=== PATIENT | male | born 1940 | race Caucasian/White ===

== ENCOUNTER → 2016-07-18 | Outpatient (CLI) | payer OTHER ==
[~2016-07-18] MED LIST: ALFUZOSIN HCL10 MG PO; ASPIRIN81 M2 PO; CINNAMON PLUS1 EACH PO; GLUCOTROL PO; IMDUR-ER60 M1; LOPRESSOR PO; METFORMIN PO; MEVACOR PO; MONOPRIL40 MG PO; OSTEO BI-FLEX1 EAC1 PO; TUMERSAID TABL1 EACH PO; VERAPAMIL ER120 M1 PO; VITAMIN B122500 MCG; VITAMIN C500 MG PO; VITAMIN D-32000 UNI1 PO
[2016-07-18 14:41] LABS: HEMATOCRIT 40.8 % (38.0-50.0); HEMOGLOBIN 13.4 gm/dL (13.0-16.0); MEAN CELL VOLUME 92.3 FL (83-96); MEAN CORPUSCULAR HEMOGLOBIN 30.3 PG (28-34); MEAN CORPUSCULAR HGB CONC 32.9 g/dL (30-36); MEAN PLATELET VOLUME 7.7 FL (6.5-11.5); RED BLOOD COUNT 4.42 X10e (3.90-5.60); RED CELL DISTRIBUTION WIDTH 14.5 % (11.0-15.5); WHITE BLOOD COUNT 6.9 X10e3 (4.0-10.5)
[2016-07-18 14:46] LABS: URINE APPEARANCE CLEAR; URINE BILIRUBIN NEG (NEG); URINE BLOOD NEG (NEG); URINE COLOR YELLOW; URINE GLUCOSE NEG (NEG); URINE KETONE TRACE (NEG); URINE LEUKOCYTE ESTERASE NEG (NEG); URINE NITRATE NEG (NEG); URINE PH 5.5 (5-8); URINE PROTEIN TRACE (NEG); URINE SPECIFIC GRAVITY 1.021 (1.003-1.035); URINE UROBILINOGEN 0.2 MG/DL (NEG)
[2016-07-18 15:04] LABS: CULTURE INDICATED? NO; URINE SOURCE CLEAN CATCH
[2016-07-18 15:12] LABS: BUN/CREATININE RATIO 17.77; CALCIUM SERUM 9.3 mg/dL (8.4-10.2); CREATININE SERUM 0.9 mg/dL (0.6-1.4); GLOM FILT RATE Estimated 82.7 mL/min (>60); POTASSIUM 4.5 mmol/L (3.5-5.1)
== END | disposition home or self-care (01) ==
LOC: CAMB 13:42
PROVIDERS: Orthopaedic Surgery
DX: Z01.812 Encounter for preprocedural laboratory examination (principal); M17.11 Unilateral primary osteoarthritis, right knee
CPT/HCPCS: 36415; 80048; 81003; 85027; 87070

== ENCOUNTER 2016-08-02 11:14 | Inpatient (IN) | payer OTHER, MEDICARE ==
--- NOTE | ~2016-08-02 | CO ---
Unit #: [id number] #: [id number] Patient: FARHEEN FORTE [id number] [address] [place], [place] [address] [id number] I MR#: [id number] NAME: FARHEEN FORTE ROOM: [facility] Age: 76 Sex: M Admission Date: 08/02/2016 : 1940 Attending Physician: Abdullahi Fowler M.D. Consultation Date: 08/04/2016 CONSULTATION REPORT REASON FOR CONSULTATION Postop acute kidney injury. HISTORY OF PRESENT ILLNESS Mr. Forte is a very pleasant 76-year-old male with a longstanding history of diabetes and hypertension, who is status post right total knee replacement on 08/02/2016. We were asked to see today, because of postop increase in creatinine from 0.9 preop to 1.5 yesterday and now 1.8 today. Of note, the patient had been on an LJ inhibitor and did receive a dose Monday night and did have subsequent low blood pressures into the 90s that required IV fluid boluses. He is now off his LJ inhibitor. Nursing reports that he is pretty sensitive to pain medication. The patient is alert and doing well this afternoon. He denies any chest discomfort or shortness of breath. He does have a Dorman catheter in place with nonbloody urine. I do not see any NSAID use. He has not received any IV contrasted studies. He does not use NSAIDs at home. PAST MEDICAL HISTORY Significant for hypertension, hyperlipidemia, diabetes, BPH, obesity, and osteoarthritis. PAST SURGICAL HISTORY He has had gastric bypass, previous heart catheterization. CURRENT MEDICATIONS As follows; he is getting normal saline at 100 mL/hour, Colace 100 mg b.i.d., Xarelto 10 mg a day, Uroxatral 10 mg a day, Lipitor 10 mg at bedtime, metoprolol 25 mg b.i.d., glipizide 5 mg b.i.d., verapamil 120 mg b.i.d., Imdur 60 mg a day, vitamin D daily, glucosamine daily, vitamin C daily, sliding-scale insulin, and p.r.n. He also was getting Monopril 40 mg daily, which has been held. ALLERGIES He has no known drug allergies. FAMILY HISTORY Denies any family history of kidney disease. His mother was also diabetic. SOCIAL HISTORY He lives with his . He is a former smoker. No alcohol or drug abuse. REVIEW OF SYSTEMS A complete 12-point review of systems was completed with the above findings. In addition, he denies any headaches or dizziness. No Unit #: [id number] #: [id number] Patient: FARHEEN FORTE nosebleed, sore throat, or earache. No chest pain or palpitations. No cough or hemoptysis. No postop nausea, vomiting, or diarrhea. No hematuria. No rashes or itching. No flank pain. No fevers. No chills. No night sweats. No hot flashes. No intolerance to heat or cold. No bleeding. No postop bleeding. No recent weight changes. Unless otherwise indicated, the review of systems was negative. 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 I's and O's are positive by 2 L. GENERAL: This is a pleasant 76-year-old male, seems somewhat tired, but in no acute distress. HEENT: Head is atraumatic and normocephalic. Eyes show pink conjunctivae with no scleral icterus. No nasal drainage. No nosebleed. Oropharynx is moist. He does have a narrow posterior pharyngeal airway. NECK: Thick with no JVD. HEART: Regular rate and rhythm with distant S1 and S2. No murmur or rub appreciated. LUNGS: Clear with no wheezing or rhonchi. Breathing is nonlabored. ABDOMEN: Morbidly obese, soft, nontender. Bowel sounds are present. EXTREMITIES: He has trace right lower extremity edema. No left lower extremity edema. SKIN: Without rashes. MUSCULOSKELETAL: Right knee is bandaged. No CVA tenderness to palpation. NEUROLOGIC: Cranial nerves are grossly intact with no gross motor deficits. LYMPHATIC: There is no neck or cervical lymphadenopathy. PSYCHIATRIC: Mood and affect appear normal. DIAGNOSTIC STUDIES LABORATORY RESULTS: Chemistry today showed a sodium of 137, potassium 4, chloride 106, bicarb 24, glucose 188, BUN 32, creatinine 1.8. Mag was 1.6. Hemoglobin 10. Urinalysis today did show 1+ protein, no blood. Hemoglobin A1c was 7.3. Yesterday's creatinine was 1.5 and again preop creatinine on 07/18/2016 was 0.9 and preop urine just showed some trace protein and no blood. ASSESSMENT AND PLAN 1. Acute kidney injury. This looks to be prerenal in nature from hypotension while on an LJ inhibitor, which would inhibit renal compensatory mechanisms. Certainly, I agree with stopping his Monopril and continuing fluids for blood pressure support. We can recheck in the morning. Certainly if his kidney function is better, I think we can proceed to rehab. 2. Hypertension. I would allow his blood pressure to run a little high here postop since he does have sleep apnea and he seems to be sensitive to pain medication. His Monopril has been stopped. I will place hold parameters on his metoprolol and verapamil for any systolic blood pressure less than 120. 3. Diabetes with apparent pretty good control. 4. Benign prostatic hyperplasia. The patient does have a Dorman catheter in and is on Uroxatral. We will discontinue his Dorman in the morning and do a voiding trial before discharge. 5. Status post right knee replacement. 6. Probable obstructive sleep apnea. Unit #: [id number] #: [id number] Patient: FARHENE FORTE I would like to thank Dr. Kitchen for this consult and the opportunity to participate in evaluation and care of Mr. Forte. Dictated by... Raghav Pugh Jr., M.D. BIJAN/vandana TD: 08/05/2016 06:28 JOB #: [id number] CONSULTATION REPORT Page 1 of 1 X Raghav Pugh MD X CONSULTATION REPORT
--- NOTE | ~2016-08-02 | CO ---
Unit #: [id number] #: [id number] Patient: FARHEEN GREEN [id number] [address] [place], [place] [address] [id number] I MR#: [id number] NAME: FARHEEN GREEN ROOM: 473 Age: 76 Sex: M Admission Date: 08/02/2016 : 1940 Attending Physician: Abdullahi Fowler M.D. CONSULTATION REPORT REASON FOR CONSULTATION Tachycardia. HISTORY OF PRESENT ILLNESS This is a 76-year-old white male, who is known to Dr. Purvis, who has a history of hypertension, hyperlipidemia, and AV maximo reentry tachycardia that was diagnosed in 2002. The patient was admitted for right total knee replacement. He was cleared by Dr. Purvis for surgery. He had a heart catheterization in 2015, where he was found to have normal coronaries. Prior echocardiogram in 2002 showed normal left ventricular systolic function, where his ejection fraction was 60%. He has been maintained on beta-brooke and calcium-channel brooke for rhythm control. He denies history of ablation. During the course of his stay, the patient was mildly hypotensive, where his blood pressure was in the 90s systolic. There were doses of his calcium-channel brooke and beta-brooke that were withheld. He developed paroxysmal supraventricular tachycardia, where his heart rate was up to 150 beats per minute this morning. The rhythm self-terminated. The patient was unaware of palpitations. He denies chest pain, palpitations, or dizziness. He reports no dyspnea. Electrolytes are within normal limits. PAST MEDICAL HISTORY 1. Cardiac catheterization, 03/11/2016, at [facility] per Dr. Purvis, which revealed left main LAD and right coronary arteries normal. Circumflex artery, early obtuse marginal branch, was small with distal obtuse marginal branch large caliber. 2. 2D echocardiogram in 2002 with an ejection fraction of 60% per Dr. Purvis's office note. 3. Stress test at [facility]. Small to moderate amount of anterior apical wall ischemia versus infarct. This is according to office note from Dr. Purvis. 4. Hypertension. 5. Hyperlipidemia. 6. AV maximo reentry tachycardia in 2002. 7. Obesity. 8. Diabetes mellitus, type 2. 9. BPH. 10. Nonsmoker. PAST SURGICAL HISTORY 1. Right total knee replacement. 2. Gastric bypass. Unit #: [id number] #: [id number] Patient: FARHEEN GREEN SOCIAL HISTORY The patient resides in [place], [place]. He is . He lives a sedentary lifestyle. He has never smoked. No illicit drug or alcohol use. FAMILY HISTORY Negative for coronary artery disease in immediate family member. ALLERGIES No known drug allergies. HOME MEDICATIONS Alfuzosin 10 mg daily, lovastatin 40 mg q.h.s., metoprolol tartrate 25 mg b.i.d., fosinopril sodium 40 mg q.h.s., glipizide 5 mg b.i.d., verapamil 120 mg b.i.d., Glucophage 1000 mg b.i.d., Imdur 60 mg daily, aspirin 81 mg daily, vitamin D3 2000 units daily, Osteo Bi-Flex one tablet daily, vitamin C 500 mg daily, cinnamon plus chromium two tablets daily, Tumersaid tablet one tablet daily. REVIEW OF SYSTEMS CONSTITUTIONAL: Negative for fever or chills. Reports weakness secondary to surgery. HEENT: No headache or hearing or visual changes. No dizziness. CARDIOVASCULAR: Has no symptoms of angina. Unaware of palpitations. No paroxysmal nocturnal dyspnea or orthopnea. No syncope or near syncope. RESPIRATORY: Negative for dyspnea, cough, or hemoptysis. GASTROINTESTINAL: No abdominal pain, nausea, or vomiting. No constipation or melena. EXTREMITIES: Negative for lower extremity edema. PHYSICAL EXAMINATION VITAL SIGNS: Blood pressure 149/58, heart rate 92, temperature 98.2, BMI of 49. GENERAL: This is a very pleasant, obese 76-year-old white male, who is in no acute respiratory distress. NEUROLOGIC: He is awake, alert, and oriented. There are no focal weaknesses. NECK: Trachea is midline. No thyromegaly or lymphadenopathy. No jugular venous distention. HEART: S1 and S2. Heart sounds are normal. No murmurs, rubs, or clicks. Regular rate and rhythm. LUNGS: Diminished without rales, rhonchi, or wheezing. ABDOMEN: Soft and obese with bowel sounds are present. EXTREMITIES: Without leg edema. SKIN: Warm and dry. DIAGNOSTIC STUDIES LABORATORY RESULTS: Glucose 176, BUN 23, creatinine 1.2, sodium 139, potassium 4.0, magnesium 1.9. TSH 0.10. White count 10.9, hemoglobin 10.0, hematocrit 30.1, platelet count 212. CARDIOVASCULAR STUDIES: Rhythm strip shows paroxysmal supraventricular tachycardia with a rate of 150 beats per minute, converted to normal sinus rhythm. IMPRESSION 1. Osteoarthritis, status post right total knee replacement. 2. Acute kidney injury. 3. Hypertension by history. Unit #: [id number] #: [id number] Patient: FARHEEN GREEN 4. Hyperlipidemia. 5. Diabetes mellitus, type 2. 6. 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 7. Normal coronaries per cardiac catheterization in 02/2016. 8. Preserved left ventricular systolic function with ejection fraction of 60%. PLAN 1. Cardiology was consulted for tachycardia. The patient had a long run of supraventricular tachycardia at a rate of 150 beats per minute. Because of hypotension, the patient missed doses of calcium-channel brooke and beta-brooke. We will restart Lopressor and verapamil. 2. Blood pressure is currently stable. I will discontinue Imdur to prevent hypotension. 3. Continue aspirin. 4. TSH is low. We will check free T3 and free T4. 5. On IV fluids for renal insufficiency, which has been corrected. 6. Follow up with Dr. Purvis upon discharge. 7. We will follow the patient with you. Thank you for allowing us to assist in this patient's care. Dictated by... Pam Bocanegra/vandana TD: 08/06/2016 03:54 JOB #: [id number] CONSULTATION REPORT Page 1 of 1 X Rodrick Harrison APRN X CONSULTATION REPORT
--- NOTE | ~2016-08-02 | BMI ---
[facility] Nutrition Therapy DATE: 08/03/16 Patient: FARHEEN GREEN Physician: KARINA Address: [address] Room/Bed: [address] [place] [address], Zip: [place] [address] Admit Date: 08/02/16 Date of : [birth year] Height: 6 0 Weight: 362 164.6 HIGH BMI NOTE: DX: 76 yo male admitted for R knee DJD ANTHROPOMETRICS: Ht: 6'0" Wt: 164.5 kg (362#) BMI: 49.2 DIET: Consistent carb INTERVENTION: 1. Consistent carb RECOMMENDATIONS: 1. Continue consistent carb diet to promote gradual weight loss towards healthy BMI. RD will f/u per protocol. Respectfully, Sapphire Das, Setter [employer] Equipment ONEAL AYALA MS, RD, LD [employer] [facility] cc: client file
--- NOTE | ~2016-08-02 | CR170 ---
[facility] A Service of [facility] RADIOLOGY TEXT RESULTS PATIENT: FARHEEN GREEN LOCATION: [facility] 455 : 40 UNIT #: [id number] AGE: [address]: Elsy Fowler MD SEX: M ORDER DR: [id number] [facility]. [place], [place] [address] [id number] I MR#: [id number] Acc #: [id number] NAME: FARHEEN GREEN : 1940 SEX: M STUDY DATE/TIME: 08/03/2016 10:07 UNIT: [facility] ROOM: [facility] STUDY DESCRIPTION: CR Knee 2 Views Rt Attending Physician: Abdullahi Fowler M.D. Ordering Physician: Abdullahi Fowler M.D. Primary Care Physician: Generic Doctor Not In System MEDICAL IMAGING REPORT This report is preliminary unless electronic signature is present EXAM 2 views right knee. DATE OF EXAMINATION 08/03/2016 10:07 HISTORY Status post right knee replacement today. COMPARISON 2 views right knee 06/08/2016 FINDINGS Total right knee replacement changes are present. The prosthesis appears appropriately seated, no periprosthetic fracture is seen. Surgical drain is in place anteriorly. Multiple midline anterior skin irma are present. Expected degree of postoperative subcutaneous air. Knee joint appears appropriately aligned. IMPRESSION Satisfactory postoperative appearance status post right knee replacement. Dictated by... Angelique Hong M.D. THIS IS AN ELECTRONICALLY VERIFIED REPORT Angelique Hong M.D. at 08/04/2016 7:04 AM Vikki TD: 08/03/2016 15:33 JOB #: [id number] MEDICAL IMAGING REPORT [facility] A Service [facility] RADIOLOGY TEXT RESULTS PATIENT: FARHEEN GREEN LOCATION: [facility] 455 : 40 UNIT #: [id number] AGE: [address]: Elsy Fowler MD SEX: M ORDER DR: Page 1 of 1 COPY
--- NOTE | ~2016-08-02 | DS ---
Unit #: [id number] #: [id number] Patient: FARHEEN GREEN [id number] [address] [place], [place] [address] [id number] I MR#: [id number] NAME: FARHEEN GREEN ROOM: [facility] Age: 76 Sex: M Admission Date: 08/02/2016 : 1940 Discharge Date: 08/05/2016 Attending Physician: Abdullahi Fowler M.D. Primary Care Physician: Generic Doctor Not In System DISCHARGE SUMMARY CHIEF COMPLAINT Right knee pain. HISTORY OF PRESENT ILLNESS This patient is a 76-year-old male with a long history of right knee pain unresponsive to physical therapy, bracing, anti-inflammatory medications, injections and activity modification. The patient is admitted for elective total knee arthroplasty. HOSPITAL COURSE The patient was taken to the operating room on the date of admission where he underwent successful right total knee arthroplasty utilizing the Ro Triathlon artificial knee. He had a posterior constrained femoral component. There were no operative complications. He had a stable postoperative course and proceeded with physical therapy on a daily basis. The patient's wound was healing well on the second postoperatively day. His calf is nontender. The right leg is neurovascularly intact. Hematocrit was 30.1 on the second postoperative day. He remained afebrile with stable vital signs. He was seen by internal medicine service, who managed his diabetes postoperatively with sliding scale insulin. Because the patient is morbidly obese and his is quite small and has difficulty helping him at home, he elects to proceed to rehab placement for further physical therapy and occupational therapy. The patient was, therefore, discharged in stable condition on the third postoperative day to rehab. FINAL DIAGNOSIS Right knee arthritis. OPERATION PERFORMED Right total knee arthroplasty on 08/02/2016. DISPOSITION/RECOMMENDATIONS 1. The patient is discharged to rehab for further occupational and physical therapy. He may weightbear as tolerated. He can move the knee as much as is comfortable. I would recommend continued passive range of motion, continued physical therapy on a twice a day basis. 2. Daily dressing change using a dry (1) dressing. 3. Discharge medications are as follows: Xarelto 10 mg p.o. daily for 2 weeks, Glucophage 1,000 mg p.o. b.i.d., Lopressor 25 mg p.o. b.i.d., verapamil 120 mg p.o. b.i.d., lovastatin 40 mg p.o. q.h.s., Monopril 40 mg p.o. q.h.s., alfuzosin 10 mg p.o. daily, Percocet 7.5/325 mg 1 or 2 p.o. q.4-6 hours p.r.n. pain, Glucotrol 5 mg p.o. b.i.d. a.c., Imdur 60 mg p.o. daily, vitamin B12 daily, vitamin C 500 mg p.o. Unit #: [id number] #: [id number] Patient: FARHEEN GREEN daily, vitamin D3 - 2,000 units p.o. daily. 4. Follow up in my office in 10-14 days for staple removal. Dictated by.Viviana Agarwal/williams TD: 08/04/2016 08:53 JOB #: [id number] DISCHARGE SUMMARY Page 1 of 1 X Elsy Fowler MD X DISCHARGE SUMMARY
--- NOTE | ~2016-08-02 | OR ---
Unit #: [id number] #: [id number] Patient: FARHEEN GREEN [id number] [address] [place], [place] [address] [id number] MR#: [id number] NAME: FARHEEN GREEN ROOM: [facility] Date of Procedure: 08/02/2016 Admission Date: 08/02/2016 Surgeon: Abdullahi Fowler M.D. : 1940 Attending Physician: Abdullahi Fowler M.D. Primary Care Physician: Generic Doctor Not In System PROCEDURE OPERATIVE NOTE PREOPERATIVE DIAGNOSIS Right knee degenerative arthritis. POSTOPERATIVE DIAGNOSIS Right knee degenerative arthritis. PROCEDURE PERFORMED Right total knee arthroplasty (43993). SASH ASSEMBLER Viviana Devries M.D. ANESTHESIA Femoral block and general. IMPLANT Ro Triathlon posterior stabilized femoral size 8, tibial size 8, 9 mm thick poly and 40 mm diameter asymmetric patella. The femur was press fit and the tibia and patellar components were cemented. INDICATION FOR SURGERY The patient is a 75-year-old male who presented with right knee medial compartment arthritis unresponsive to conservative care. He has pain with activities of daily living. He has failed all conservative modalities. He is, therefore, to undergo knee replacement. PROCEDURE The patient underwent femoral adductor block in the anesthesia holding area to the right lower extremity. He was then taken to the operating room and placed in the supine position and general anesthetic was induced. The right leg was identified as the correct operative location during the time-out procedure. The IV antibiotic protocol was followed. The right leg was then prepped and draped in the usual sterile fashion. The right leg was exsanguinated and the thigh tourniquet inflated to 300 mmHg. An anterior longitudinal incision was made over the knee measuring 15 cm. The subcutaneous tissue was carefully divided. The knee joint was opened through a medial parapatellar incision. The anterior fat pad was excised. The patella was dislocated laterally and the knee was flexed. The Ro Triathlon System was used for knee replacement. A starting drill hole was placed in the anterior medullary canal of the femur. The distal femoral cutting guide was then pinned into place. A 5 Unit #: [id number] #: [id number] Patient: FARHEEN GREEN degree valgus 8 mm thick cut was then made. The femur was sized at a #8. The #8 cutting block was applied. The anterior-posterior and chamfer cuts were made. The notch cutting guide was then placed and the notch cut was made. The trial #8 femoral component fit appropriately. The menisci were then excised. The posterior cruciate retractor was placed. A drill hole was then made in the intramedullary canal of the tibia and between the intracondylar spine. The guide colette was placed and the tibial cut was adjusted so that 2 mm of bone would be taken off the medial side since it was the most worn side. The tibial cut was made. The bone was removed and it was determined that not enough bone was removed. Therefore, the tibial cut was dropped another 2 mm and another 2 mm of bone was taken from the tibia. The #8 tibial trial fit appropriately. It was positioned rotationally appropriately and the pinned into place. The keel punch was then utilized. A trial reduction with the femur and tibial trial components showed excellent range of motion and stability in both varus and valgus stress at all degrees of flexion. All trial components were removed. The patella was then measured and a freehand patellar cut was made, removing 12 mm thickness of patella. An asymmetric 40 patella trial was placed and the 3 drill holes were placed in the patella. All bony surfaces were then pulse lavaged. The #8 tibial component was then impacted into place. The press fit #8 femur was impacted into place. The size A 40 patella was cemented into place. Then finally the 9 mm thick polyethylene PF insert was placed. The knee was stable. Full extension was achieved. Medial and lateral stability was excellent. Patellar tracking was excellent. The tourniquet was released. The patellar tourniquet time was 1 hour 40 minutes. The flank capsule and subcutaneous and muscular and tendinous tissues were then infiltrated with a cocktail of clonidine, ropinirole, Toradol and epinephrine. After release of the tourniquet there was a little postoperative bleeding and medium Hemovac drain was placed. A 3 minute dilute Betadine wash was applied and then lavaged with saline. The muscle layer was then closed with interrupted 0 Vicryl mtzwdj-dh-ikloy suture. Subcutaneous tissue was closed with 2-0 Vicryl. Skin was closed with skin irma. Xeroform gauze, dressing, sponges, Webril, Genaro wrap were applied and a knee immobilizer was placed. The patient was then transported to the recovery room in stable condition. ESTIMATED BLOOD LOSS Less than 100 mL. COMPLICATIONS None. SPECIMENS None. Dictated by..Farrah Fowler M.D. RTMady/dory TD: 08/09/2016 11:23 Unit #: [id number] #: [id number] Patient: FARHEEN GREEN JOB #: [id number] CC: Abdullahi Fowler M.D. PROCEDURE OPERATIVE NOTE Page 1 of 1 X Elsy Fowler MD X PROCEDURE OPERATIVE NOTE
--- NOTE | ~2016-08-02 | DS ---
Unit #: [id number] #: [id number] Patient: FARHEEN FORTE [id number] [address] [place], [place] [address] [id number] I MR#: [id number] NAME: FARHEEN FORTE ROOM: [facility] Age: 76 Sex: M Admission Date: 08/02/2016 : 1940 Discharge Date: 08/06/2016 Attending Physician: Abdullahi Fowler M.D. Primary Care Physician: [place]asta Doctor Not In System DISCHARGE SUMMARY ADDENDUM Mr. Forte remained in house following his planned discharge as on the day of discharge he was noted to have an elevated creatinine of 1.8. His preop creatinine was 0.9. Now on the day of discharge, his acute kidney injury has resolved and his creatinine is back down to 0.9. Additionally, he had an episode of SVT. Cardiology was consulted. He has been seen and evaluated and no further recommendations for workup have been made. He has been cleared for discharge to rehab. We are waiting final disposition on Imdur as this was discontinued during this hospitalization, but it is not clear if this is to be discontinued upon discharge as well. An updated medical reconciliation follows. DISCHARGE MEDICATIONS 1. Glucophage 1 g p.o. b.i.d. 2. Xarelto 10 mg p.o. daily x2 weeks post discharge. 3. Lopressor 25 mg p.o. b.i.d. 4. Verapamil 120 mg p.o. b.i.d. 5. Lovastatin 40 mg p.o. q.h.s. 6. Fosinopril 40 mg p.o. q.h.s. 7. Alfuzosin 10 mg p.o. daily. 8. Glucotrol 5 mg p.o. b.i.d. before meals. 9. Vitamin B12 tablet daily. 10. Vitamin C 500 mg p.o. daily. 11. Vitamin D3 2000 units p.o. daily. 12. Percocet 5/325 one to two tabs p.o. q.4-6 hours p.r.n. pain. 13. Pending reconciliation of Imdur 60 mg daily. Awaiting final cardiology recommendation. Please see the completed discharge medication reconciliation document from the hospital. FOLLOWUP As scheduled with Dr. Fowler. Dictated by... Abran Guzman M.D. SRIKANTH/kniza TD: 08/06/2016 10:29 JOB #: [id number] Unit #: [id number] #: [id number] Patient: FARHEEN FORTE DISCHARGE SUMMARY Page 1 of 1 X Abran Guzman MD X DISCHARGE SUMMARY
--- NOTE | ~2016-08-02 | EKG ---
PATIENT: FARHEEN GREEN UNIT #: [id number] Ventricular Rate: 95 BPM Atrial Rate: 95 BPM P-R Interval: 156 ms QRS Duration: 90 ms Q-T Interval: 326 ms QTC Calculation(Bezet): 409 ms P [place]: 43 degrees Calculated R [place]: 9 degrees Calculated T [place]: 40 degrees Diagnosis Line: Sinus rhythm with occasional Premature ventricular Diagnosis Line: complexes Diagnosis Line: Otherwise normal ECG Diagnosis Line: No previous ECGs available Diagnosis Line: Confirmed by LAKISHA FRANCISCO MD ([id number]) on 08/07/2016 Diagnosis Line: 7:04:10 AM INTERPRETING MD: MARYAM CASTANEDA
--- NOTE | ~2016-08-02 | HP ---
Unit #: [id number] #: [id number] Patient: FARHEEN GREEN [id number] [address] [address] [id number] MR#: [id number] NAME: FARHEEN GREEN ROOM: [facility] Age: 76 Sex: M Admission Date: 08/02/2016 : 1940 Attending Physician: Abdullahi Fowler M.D. Primary Care Physician: Generic Doctor Not In System HISTORY AND PHYSICAL CHIEF COMPLAINT Right knee pain. HISTORY OF PRESENT ILLNESS The patient is a 75-year-old male with a long history of right knee pain which has been unresponsive to physical therapy, bracing, anti-inflammatory medication, injections and activity modification. The patient is admitted for elective right total knee arthroplasty. PAST MEDICAL HISTORY Remarkable for: 1. Obesity, status post gastric bypass. 2. Diabetes. 3. Hypertension. 4. Coronary artery disease. 5. Sleep apnea. 6. Hypercholesterolemia. 7. Benign prostatic hypertrophy. HOME MEDICATIONS 1. Verapamil. 2. Glipizide. 3. Isosorbide. 4. Lisinopril. 5. Metoprolol. 6. Metformin. 7. Lovastatin. 8. Alfuzosin. ALLERGIES None. SOCIAL HISTORY The patient is a former 60 pack-year smoker but he doesn't smoke now. He is currently a nondrinker but has been a heavy drinker in the past. PHYSICAL EXAMINATION GENERAL: Height 6 foot tall, weight 365 pounds. In general, this is an obese male in no acute distress. PHARYNX: Clear. NECK: Supple without masses. HEART: Regular sinus rhythm without murmurs or gallops. LUNGS: Clear. ABDOMEN: Soft and nontender without masses or organomegaly. Unit #: [id number] #: [id number] Patient: FARHEEN GREEN Evaluation of the right knee shows no significant deformity. He has no effusion. Range of motion is 0 to 130 degrees. He has some lateral ligamentous laxity of 1+. The medial collateral ligament is stable. Hany test is negative. Posterior tibial sag test is negative. The patient is maximally tender in the medial joint line. There is no warmth or erythema. Hip range of motion is full and nontender. Pulses are intact. Sensation is normal. Quad strength is excellent. Standing x-rays of the right knee show bone on bone opposition of the medial compartment without evidence of patellar, femoral or lateral compartment arthritis. ADMITTING DIAGNOSES End stage right knee arthritis unresponsive to conservative care. PLAN The patient has been cleared by both by medicine and cardiology. He is therefore admitted for total knee arthroplasty. This procedure was described along with risks of bleeding, infection, nerve damage, need for further surgery in the future, loosening of the prosthesis, infection of the prosthesis, need for multiple revisions in the future, knee stiffness, deep venous thrombosis, pulmonary embolism, anesthetic complications. He understands the above risks and agrees to proceed with the treatment plan. He reviewed the operative permit and signed it in our office. Dictated by Viviana Polanco/johann TD: 08/02/2016 05:00 JOB #: [id number] HISTORY AND PHYSICAL Page 1 of 1 X Elsy Fowler MD X HISTORY AND PHYSICAL
--- NOTE | ~2016-08-02 | CO ---
Unit #: [id number] #: [id number] Patient: FARHEEN GREEN [id number] [address] [address] [id number] I MR#: [id number] NAME: FARHEEN GREEN ROOM: [facility] Age: 76 Sex: M Admission Date: 08/02/2016 : 1940 Attending Physician: Abdullahi Fowler M.D. Primary Care Physician: [facility] Not In System Consultation Date: 08/02/2016 CONSULTATION REPORT REASON FOR CONSULTATION Postoperative diabetes management. HISTORY OF PRESENT ILLNESS The patient is a 76-year-old male with a past medical history of hypertension, hyperlipidemia, morbid obesity, diabetes, BPH, who was admitted by Dr. Fowler for right total knee arthroplasty. The patient states that he has had several years of right knee pain. He has tried physical therapy. He has had injections with no relief. He underwent right total knee arthroplasty today. Regarding the patient's chronic medical conditions, he has diabetes. He does not routinely check his blood sugars. He has been taking his medications as prescribed. He is on Glipizide and Metformin. I do not see an Accu-Chek yet in [place] in [place]. PAST MEDICAL HISTORY 1. Hypertension. 2. Hyperlipidemia. 3. Diabetes. 4. BPH. 5. Morbid obesity with a BMI of 49. PAST SURGICAL HISTORY 1. Gastric bypass. 2. Cardiac catheterization in March of 2016. Normal per the patient. 3. Circumcision. SOCIAL HISTORY The patient lives with his , although she is currently not living with him due to caring for an ill family member. There is no tobacco or alcohol use. He typically walks without assistance. FAMILY HISTORY Notable for his mother having diabetes. ALLERGIES No known allergies. HOME MEDICATIONS 1. Verapamil 120 mg twice daily. 2. Glucophage 1,000 mg twice daily. 3. Imdur 60 mg daily. 4. Aspirin 81 mg daily. Unit #: [id number] #: [id number] Patient: FARHEEN GREEN 5. Vitamin D3 2,000 units daily. 6. Alfuzosin 10 mg daily. 7. Mevacor 40 mg at bedtime. 8. Lopressor 25 mg twice daily. 9. Fosinopril 40 mg daily. 10. Glipizide 5 mg twice daily. 11. Osteo Bi-Flex daily. 12. Vitamin C 500 mg four times daily. 13. Cinnamon two daily. 14. Tumersaid daily. 15. Vitamin B12 daily. REVIEW OF SYSTEMS A complete review of systems is negative except as indicated in HPI. The patient states that he does snore and wakes up tired. He has never had a sleep study. PHYSICAL EXAMINATION GENERAL APPEARANCE: The patient is a male who is awake and alert, in no acute distress. VITAL SIGNS: Temperature 97.2. Blood pressure 157/83. Heart rate 79. Respirations 18. Oxygen saturation 92% on room air. HEENT: The head is atraumatic. Mucous membranes are moist. NECK: Supple. Trachea is midline. CARDIOVASCULAR: Regular rate and rhythm. LUNGS: Clear to auscultation bilaterally with no increased work of breathing. ABDOMEN: Soft, nontender with bowel sounds present all four quadrants. EXTREMITIES: There is a brace about the right knee that is clean, dry and intact. There is no pedal edema. NEUROLOGIC: The patient is awake and alert. He follows commands. PSYCHIATRIC: Mood and affect are normal. The patient is cooperative. SKIN: Of examined areas is warm and dry. DIAGNOSTIC STUDIES CARDIOVASCULAR: EKG, from April 07, 2016, showed sinus bradycardia with premature atrial complexes and aberrant conduction, rate of 59 beats per minute. There are no labs. ASSESSMENT The patient is a 75-year-old male with: 1. Status post right total knee arthroplasty. 2. Hypertension. 3. Hyperlipidemia. 4. Morbid obesity with a BMI of 49 present on admission. 5. Diabetes. 6. Increased risk of obstructive sleep apnea. 7. BPH. PLAN 1. Regarding diabetes, I have ordered a hemoglobin A1C as well as low dose sliding scale insulin with Accu-Cheks. The patient's home medications have been restarted. 2. Regarding increased risk of obstructive sleep apnea, I have ordered an obstructive sleep apnea protocol. Unit #: [id number] #: [id number] Patient: FARHEEN GREEN Thank you very much for the consultation. We will follow the patient along closely with you. Dictated by... Gali Kitchen M.D. MICHAEL/juan a TD: 08/03/2016 06:03 JOB #: [id number] CONSULTATION REPORT Page 1 of 1 X Gali Kitchen MD CONSULTATION REPORT
[2016-08-02] MEDS ORDERED: VITAMIN D-32000 UNI1 PO (12:04)
[2016-08-02] MEDS ORDERED: OSTEO BI-FLEX1 EAC1 PO (12:04)
[2016-08-02] MEDS ORDERED: CINNAMON PLUS1 EACH PO (12:05)
[2016-08-02] MEDS ORDERED: VITAMIN C500 MG PO (12:05)
[2016-08-02] MEDS ORDERED: VITAMIN B122500 MCG (12:06)
[2016-08-02] MEDS ORDERED: TUMERSAID TABL1 EACH PO (12:06)
[2016-08-02] MEDS ORDERED: ALFUZOSIN HCL10 MG PO (14:36)
[2016-08-02] MEDS ORDERED: MEVACOR PO (14:36)
[2016-08-02] MEDS ORDERED: GLUCOTROL PO (14:37)
[2016-08-02] MEDS ORDERED: LOPRESSOR PO (14:37)
[2016-08-02] MEDS ORDERED: MONOPRIL40 MG PO (14:37)
[2016-08-02] MEDS ORDERED: VERAPAMIL ER120 M1 PO (14:38)
[2016-08-02] MEDS ORDERED: METFORMIN PO (14:39)
[2016-08-02] MEDS ORDERED: IMDUR-ER60 M1 (14:39)
[2016-08-02] MEDS ORDERED: ASPIRIN81 M2 PO (14:54)
[2016-08-03 03:39] LABS: HEMATOCRIT 36.4 % (38.0-50.0); HEMOGLOBIN 11.8 gm/dL (13.0-16.0); MEAN CELL VOLUME 94.8 FL (83-96); MEAN CORPUSCULAR HEMOGLOBIN 30.6 PG (28-34); MEAN CORPUSCULAR HGB CONC 32.3 g/dL (30-36); MEAN PLATELET VOLUME 8.1 FL (6.5-11.5); RED BLOOD COUNT 3.84 X10e (3.90-5.60); RED CELL DISTRIBUTION WIDTH 14.6 % (11.0-15.5); WHITE BLOOD COUNT 10.9 X10e3 (4.0-10.5)
[2016-08-03 04:03] LABS: ALBUMIN SERUM 3.2 g/dL (3.5-5.0); BILIRUBIN,TOTAL 0.6 mg/dL (0.2-2.0); BUN/CREATININE RATIO 12.66; CALCIUM SERUM 8.2 mg/dL (8.4-10.2); CREATININE SERUM 1.5 mg/dL (0.6-1.4); GLOM FILT RATE Estimated 44.6 mL/min (>60); POTASSIUM 4.8 mmol/L (3.5-5.1); PROTEIN TOTAL SERUM 6.4 g/dL (6.0-8.3)
[2016-08-03 21:18] LABS: URINE SOURCE CATH
[2016-08-03 21:24] LABS: URINE APPEARANCE CLEAR; URINE BLOOD NEG (NEG); URINE COLOR DK YELLOW; URINE GLUCOSE NEG (NEG); URINE KETONE 1+ (NEG); URINE LEUKOCYTE ESTERASE NEG (NEG); URINE NITRATE NEG (NEG); URINE PROTEIN 1+ (NEG); URINE SPECIFIC GRAVITY 1.031 (1.003-1.035)
[2016-08-03 21:26] LABS: U HYALINE CASTS AUWI 0-2 /[LPF]; URINE BACTERIA AUWI NEG (NEGATIVE); URINE SQUAMOUS EPITHELIAL CELL NONE SEEN /[HPF]
[2016-08-03 21:30] LABS: CULTURE INDICATED? NO; URINE BILIRUBIN NEG (NEG)
[2016-08-04 03:08] LABS: HEMATOCRIT 30.1 % (38.0-50.0)
[2016-08-04 03:37] LABS: BUN/CREATININE RATIO 17.77; CALCIUM SERUM 7.3 mg/dL (8.4-10.2); CREATININE SERUM 1.8 mg/dL (0.6-1.4); GLOM FILT RATE Estimated 35.8 mL/min (>60); MAGNESIUM 1.6 mg/dL (1.6-3.0)
[2016-08-05 03:53] LABS: BUN/CREATININE RATIO 19.16; CALCIUM SERUM 7.5 mg/dL (8.4-10.2); CREATININE SERUM 1.2 mg/dL (0.6-1.4); GLOM FILT RATE Estimated 58.4 mL/min (>60); MAGNESIUM 1.9 mg/dL (1.6-3.0)
[2016-08-06 03:42] LABS: HEMATOCRIT 29.2 % (38.0-50.0); HEMOGLOBIN 9.7 gm/dL (13.0-16.0); MEAN CELL VOLUME 92.4 FL (83-96); MEAN CORPUSCULAR HEMOGLOBIN 30.5 PG (28-34); MEAN PLATELET VOLUME 8.2 FL (6.5-11.5); RED BLOOD COUNT 3.17 X10e (3.90-5.60); RED CELL DISTRIBUTION WIDTH 14.4 % (11.0-15.5); WHITE BLOOD COUNT 10.5 X10e3 (4.0-10.5)
[2016-08-06 04:07] LABS: BUN/CREATININE RATIO 17.77; CALCIUM SERUM 7.6 mg/dL (8.4-10.2); CREATININE SERUM 0.9 mg/dL (0.6-1.4); GLOM FILT RATE Estimated 82.7 mL/min (>60); MAGNESIUM 1.7 mg/dL (1.6-3.0); POTASSIUM 3.4 mmol/L (3.5-5.1)
[2016-08-06 04:41] LABS: FREE T3 2.8 pg/mL (2.5-3.9)
[2016-08-06 04:43] LABS: FREE THYROXIN (T4) 1.17 ng/dL (0.58-1.64)
== END 2016-08-06 20:32 | DRG 470 ==
LOC: CSUR 11:14 → CPACUOF 17:38 → C4B 18:40 → C4C 08-05 15:34
PROVIDERS: Family Medicine; Internal Medicine Cardiovascular Disease; Nurse Practitioner; Orthopaedic Surgery
PROC: 0SRC0J9 Replacement of Right Knee Joint with Synthetic Substitute, Cemented, Open Approach (ICD-10-PCS; principal; 2016-08-02 14:00)
DX: M17.11 Unilateral primary osteoarthritis, right knee (principal); N17.9 Acute kidney failure, unspecified; Z68.42 Body mass index [BMI] 45.0-49.9, adult; E83.42 Hypomagnesemia; D62 Acute posthemorrhagic anemia; I47.1 Supraventricular tachycardia; E11.9 Type 2 diabetes mellitus without complications; Z79.4 Long term (current) use of insulin; I10 Essential (primary) hypertension; I25.10 Atherosclerotic heart disease of native coronary artery without angina pectoris; E66.01 Morbid (severe) obesity due to excess calories; N40.0 Benign prostatic hyperplasia without lower urinary tract symptoms; I95.81 Postprocedural hypotension; R33.8 Other retention of urine; G47.30 Sleep apnea, unspecified; E78.5 Hyperlipidemia, unspecified; Z87.891 Personal history of nicotine dependence; Z98.84 Bariatric surgery status
CPT/HCPCS: 73560; 80048; 80053; 81003; 82947; 83036; 83735; 84439; 84443; 84481; 85014; 85018; 85027; 93005; 94010; 94760; 94761; 97110; 97116; 97162; 97530; 97535; C1776; G8978-GP; G8979-GP; J0131; J0171; J0330; J0690; J0735; J1815; J1885; J2250; J2270; J2405; J2795; J3010